=== PATIENT | female | born 1950 | race Two or more races ===

== ENCOUNTER → 2017-11-05 | Outpatient (CLI) | payer BC ==
[~2017-11-05] MED LIST: ACEASPCAF; METO50 PO; NAPR500 PO; OXYACE5T PO
[2017-11-05 16:23] LABS: BASOPHILS ABSOLUTE AUTO 0.03 K/mm3 (0.00-0.23); BASOPHILS PERCENT AUTO 0 % (0-2); EOSINOPHILS ABSOLUTE AUTO 0.05 K/mm3 (0.00-0.68); EOSINOPHILS PERCENT AUTO 0 % (0-6); Hematocrit 34.5 % (33.0-51.0); Hemoglobin 11.3 g/dL (11.5-16.0); IMMATURE GRAN ABSOLUTE AUTO 0.04 K/mm3 (0.00-0.10); IMMATURE GRAN PERCENT AUTO 0 % (0-1); LYMPHOCYTES ABSOLUTE AUTO 1.98 K/mm3 (0.84-5.20); LYMPHOCYTES PERCENT AUTO 15 % (21-46); MONOCYTES ABSOLUTE AUTO 1.52 K/mm3 (0.16-1.47); MONOCYTES PERCENT AUTO 11 % (4-13); Mean Corpuscular HGB 28.5 pg (26.0-34.0); Mean Corpuscular HGB Conc 32.8 g/dL (31.5-36.5); Mean Corpuscular Volume 87 fL (80-100); Mean Platelet Volume 10.7 fL (9.1-12.4); NEUTROPHILS ABSOLUTE AUTO 9.97 K/mm3 (1.96-9.15); NEUTROPHILS PERCENT AUTO 73 % (41-73); Platelet Count 216 K/mm3 (150-400); RDW Coefficient Variation 14.6 % (11.7-14.2); Red Blood Cell Count 3.97 M/mm3 (3.80-5.20); White Blood Cell Count 13.59 K/mm3 (4.00-11.30)
[2017-11-05 16:35] LABS: Albumin, Blood 3.3 g/dL (3.4-5.0); Albumin/Globulin Ratio 0.9 (0.8-1.8); Bilirubin, Total 0.8 mg/dL (0.1-1.0); Bun/Creatinine Ratio 14.1 (12.0-20.0); Calcium, Blood 10.2 mg/dL (8.5-10.1); Creatinine, Blood 1.7 mg/dL (0.40-1.00); Globulin, Blood 3.5 g/dL (2.2-4.0); Potassium, Blood 3.7 mmol/L (3.5-5.5); Total Protein, Blood 6.8 g/dL (6.4-8.2)
== END ==
LOC: LAB EV 16:18 → LAB SHORT 16:18
PROVIDERS: Internal Medicine
DX: R10.9 Unspecified abdominal pain (principal)
CPT/HCPCS: 80053; 82150; 83690; 85025; 87077; 87086; 87186

== ENCOUNTER → 2017-11-06 | Outpatient (CLI) | payer BC ==
[2017-11-06 16:06] LABS: BASOPHILS ABSOLUTE AUTO 0.04 K/mm3 (0.00-0.23); BASOPHILS PERCENT AUTO 0 % (0-2); EOSINOPHILS ABSOLUTE AUTO 0.14 K/mm3 (0.00-0.68); EOSINOPHILS PERCENT AUTO 1 % (0-6); Hematocrit 32.4 % (33.0-51.0); Hemoglobin 10.5 g/dL (11.5-16.0); IMMATURE GRAN ABSOLUTE AUTO 0.04 K/mm3 (0.00-0.10); IMMATURE GRAN PERCENT AUTO 0 % (0-1); LYMPHOCYTES PERCENT AUTO 18 % (21-46); MONOCYTES ABSOLUTE AUTO 1.19 K/mm3 (0.16-1.47); MONOCYTES PERCENT AUTO 12 % (4-13); Mean Corpuscular HGB 28.8 pg (26.0-34.0); Mean Corpuscular HGB Conc 32.4 g/dL (31.5-36.5); Mean Corpuscular Volume 89 fL (80-100); Mean Platelet Volume 10.6 fL (9.1-12.4); NEUTROPHILS ABSOLUTE AUTO 6.58 K/mm3 (1.96-9.15); NEUTROPHILS PERCENT AUTO 67 % (41-73); Platelet Count 227 K/mm3 (150-400); RDW Coefficient Variation 14.6 % (11.7-14.2); RDW Standard Deviation 47.3 fL (35.1-46.3); Red Blood Cell Count 3.65 M/mm3 (3.80-5.20); White Blood Cell Count 9.79 K/mm3 (4.00-11.30)
[2017-11-06 16:15] LABS: Albumin, Blood 2.9 g/dL (3.4-5.0); Albumin/Globulin Ratio 0.7 (0.8-1.8); Bilirubin, Total 0.5 mg/dL (0.1-1.0); Bun/Creatinine Ratio 16.4 (12.0-20.0); Calcium, Blood 10.3 mg/dL (8.5-10.1); Creatinine, Blood 1.16 mg/dL (0.40-1.00); Potassium, Blood 3.8 mmol/L (3.5-5.5); Total Protein, Blood 6.9 g/dL (6.4-8.2)
== END ==
LOC: LAB SHORT 16:01 → LAB EV 16:01
PROVIDERS: Physician Assistant Surgical
DX: N10 Acute pyelonephritis (principal)
CPT/HCPCS: 80053; 85025

== ENCOUNTER → 2017-11-07 | Outpatient (CLI) | payer BC ==
[2017-11-07 14:52] LABS: BASOPHILS ABSOLUTE AUTO 0.06 K/mm3 (0.00-0.23); BASOPHILS PERCENT AUTO 1 % (0-2); EOSINOPHILS ABSOLUTE AUTO 0.16 K/mm3 (0.00-0.68); EOSINOPHILS PERCENT AUTO 3 % (0-6); Hemoglobin 9.8 g/dL (11.5-16.0); IMMATURE GRAN ABSOLUTE AUTO 0.01 K/mm3 (0.00-0.10); IMMATURE GRAN PERCENT AUTO 0 % (0-1); LYMPHOCYTES ABSOLUTE AUTO 1.85 K/mm3 (0.84-5.20); LYMPHOCYTES PERCENT AUTO 32 % (21-46); MONOCYTES ABSOLUTE AUTO 0.59 K/mm3 (0.16-1.47); MONOCYTES PERCENT AUTO 10 % (4-13); Mean Corpuscular HGB 28.9 pg (26.0-34.0); Mean Corpuscular HGB Conc 32.7 g/dL (31.5-36.5); Mean Corpuscular Volume 89 fL (80-100); Mean Platelet Volume 9.9 fL (9.1-12.4); NEUTROPHILS ABSOLUTE AUTO 3.07 K/mm3 (1.96-9.15); NEUTROPHILS PERCENT AUTO 54 % (41-73); Platelet Count 211 K/mm3 (150-400); RDW Coefficient Variation 14.6 % (11.7-14.2); RDW Standard Deviation 46.6 fL (35.1-46.3); Red Blood Cell Count 3.39 M/mm3 (3.80-5.20); White Blood Cell Count 5.74 K/mm3 (4.00-11.30)
[2017-11-07 15:05] LABS: Albumin, Blood 2.8 g/dL (3.4-5.0); Albumin/Globulin Ratio 0.7 (0.8-1.8); Bilirubin, Total 0.3 mg/dL (0.1-1.0); Bun/Creatinine Ratio 12.2 (12.0-20.0); Calcium, Blood 10.2 mg/dL (8.5-10.1); Creatinine, Blood 1.15 mg/dL (0.40-1.00); Globulin, Blood 3.8 g/dL (2.2-4.0); Potassium, Blood 3.6 mmol/L (3.5-5.5); Total Protein, Blood 6.6 g/dL (6.4-8.2)
== END ==
LOC: LAB EV 14:48 → LAB SHORT 14:48
PROVIDERS: Physician Assistant Surgical
DX: R10.9 Unspecified abdominal pain (principal)
CPT/HCPCS: 80053; 85025

== ENCOUNTER → 2018-02-04 | Outpatient (CLI) | payer BC ==
[~2018-02-04] MED LIST changes: +Advil200 M1 PO; +CHOL10002 PO; +CYAN500 PO; +Invanz1 GM IV; +Super Calcium600 MG PO; +TRAM50 PO
== END ==
LOC: LAB SHORT 14:11 → LAB 14:11
DX: R30.0 Dysuria (principal); M54.9 Dorsalgia, unspecified
CPT/HCPCS: 87077; 87086; 87186

== ENCOUNTER 2018-05-22 12:00 | Day surgery (SDC) | payer OTHER | END 2018-05-22 23:59 | disposition home or self-care (01) | LOC: ATC 12:00 | DX: N39.0 Urinary tract infection, site not specified (principal) | CPT/HCPCS: 96365; J1335 ==

== ENCOUNTER → 2018-07-15 | Outpatient (CLI) | payer OTHER ==
[2018-07-15 10:45] LABS: Creatinine Urine 38.8 mg/dL (27.00-270.00); Protein, Urine Quantitative 31.6 mg/dL (0.0-11.9); Uric Acid, Urine 16.8 mg/dL (7.5-49.5)
[2018-07-15 10:59] LABS: Calcium, Urine 9.9 mg/dL (2.0-17.5); Calcium, Urine Calculation 277.2 mg/24hrs (42.0-353.0); Phosphorus, Urine 30.5 mg/dL (20.0-60.0)
== END | disposition home or self-care (01) ==
LOC: LAB 09:10 → LAB SHORT 09:10 → LAB FUT 07-13 16:10
PROVIDERS: Internal Medicine Nephrology
DX: N18.2 Chronic kidney disease, stage 2 (mild) (principal); D63.1 Anemia in chronic kidney disease; N25.81 Secondary hyperparathyroidism of renal origin; E55.9 Vitamin D deficiency, unspecified; E78.00 Pure hypercholesterolemia, unspecified; D51.8 Other vitamin B12 deficiency anemias; D52.8 Other folate deficiency anemias; D50.9 Iron deficiency anemia, unspecified; R76.9 Abnormal immunological finding in serum, unspecified; R94.5 Abnormal results of liver function studies; R94.6 Abnormal results of thyroid function studies
CPT/HCPCS: 81050; 82043; 82131; 82340; 82507; 82570; 84105; 84133; 84156; 84300; 84560

== ENCOUNTER 2018-07-21 11:07 | Emergency (ER) | payer OTHER ==
[~2018-07-21] VITALS: Ht 170.2 cm; Wt 82.5 kg
[2018-07-21 12:03] LABS: BASOPHILS ABSOLUTE AUTO 0.06 K/mm3 (0.00-0.23); BASOPHILS PERCENT AUTO 1 % (0-2); EOSINOPHILS ABSOLUTE AUTO 0.12 K/mm3 (0.00-0.68); EOSINOPHILS PERCENT AUTO 2 % (0-6); Hemoglobin 11.2 g/dL (11.5-16.0); IMMATURE GRAN ABSOLUTE AUTO 0.01 K/mm3 (0.00-0.10); IMMATURE GRAN PERCENT AUTO 0 % (0-1); LYMPHOCYTES ABSOLUTE AUTO 2.55 K/mm3 (0.84-5.20); LYMPHOCYTES PERCENT AUTO 39 % (21-46); MONOCYTES ABSOLUTE AUTO 0.49 K/mm3 (0.16-1.47); MONOCYTES PERCENT AUTO 7 % (4-13); Mean Corpuscular HGB 27.5 pg (26.0-34.0); Mean Corpuscular HGB Conc 31.1 g/dL (31.5-36.5); Mean Corpuscular Volume 88 fL (80-100); Mean Platelet Volume 10.6 fL (9.1-12.4); NEUTROPHILS ABSOLUTE AUTO 3.35 K/mm3 (1.96-9.15); NEUTROPHILS PERCENT AUTO 51 % (41-73); Platelet Count 270 K/mm3 (150-400); RDW Coefficient Variation 13.9 % (11.7-14.2); RDW Standard Deviation 44.4 fL (35.1-46.3); Red Blood Cell Count 4.08 M/mm3 (3.80-5.20); White Blood Cell Count 6.58 K/mm3 (4.00-11.30)
[2018-07-21 12:24] LABS: Alanine Aminotransfer (ALT/SGP 44 U/L (12-78); Albumin, Blood 3.5 g/dL (3.4-5.0); Albumin/Globulin Ratio 0.9 (0.8-1.8); Alk Phos 82 U/L (50-136); Anion Gap 6 mmol/L (6-16); Aspartate Aminotrans (AST/SGOT 21 U/L (12-37); Bilirubin, Total 0.6 mg/dL (0.1-1.0); Blood Urea Nitrogen 18 mg/dL (8-24); Bun/Creatinine Ratio 23.1 (12.0-20.0); CO2, Blood 28 mmol/L (21-32); Chloride, Blood 106 mmol/L (98-108); Creatinine, Blood 0.78 mg/dL (0.40-1.00); Globulin, Blood 4.1 g/dL (2.2-4.0); Glomerular Filtration Rate >60 (60-); Glucose, Blood 131 mg/dL (70-99); Potassium, Blood 3.6 mmol/L (3.5-5.5); Sodium, Blood 140 mmol/L (136-145); Total Protein, Blood 7.6 g/dL (6.4-8.2); Troponin I <0.015 ng/mL (0.000-0.040)
== END 2018-07-21 13:50 | disposition home or self-care (01) ==
LOC: ER 11:07
PROVIDERS: Emergency Medicine
DX: M54.9 Dorsalgia, unspecified (principal); M79.601 Pain in right arm; M79.602 Pain in left arm; Z79.899 Other long term (current) drug therapy
CPT/HCPCS: 36415; 80053; 84484; 85025; 93005; 93010; 99283-25

== ENCOUNTER → 2020-05-07 | Outpatient (CLI) | payer OTHER ==
[2020-05-07 14:42] LABS: Creatinine Urine 38.8 mg/dL (27.00-270.00); Protein, Urine Quantitative 6.8 mg/dL (0.0-11.9)
[2020-05-07 14:45] LABS: Microalbumin, Urine Quant. 7.41 mg/L (0.000-20.000)
== END | disposition home or self-care (01) ==
LOC: LAB 13:10 → LAB SHORT 13:10
PROVIDERS: Internal Medicine Nephrology
DX: N18.2 Chronic kidney disease, stage 2 (mild) (principal); D63.1 Anemia in chronic kidney disease; N25.81 Secondary hyperparathyroidism of renal origin; E55.9 Vitamin D deficiency, unspecified; E78.00 Pure hypercholesterolemia, unspecified; R80.9 Proteinuria, unspecified; R76.9 Abnormal immunological finding in serum, unspecified; R94.5 Abnormal results of liver function studies
CPT/HCPCS: 81050; 82043; 82570; 84156

== ENCOUNTER → 2020-11-25 | Outpatient (CLI) | payer OTHER | END | disposition home or self-care (01) | LOC: PLD 17:38 → LAB SHORT 17:38 | DX: N39.0 Urinary tract infection, site not specified (principal) | CPT/HCPCS: 87077; 87086; 87186 ==

== ENCOUNTER 2021-08-18 19:15 | Emergency (ER) | payer OTHER ==
[~2021-08-18] VITALS: Ht 167.6 cm; Wt 90.7 kg
== END 2021-08-18 23:45 | disposition home or self-care (01) ==
LOC: ER 19:15
DX: S16.1XXA Strain of muscle, fascia and tendon at neck level, initial encounter (principal); S29.012A Strain of muscle and tendon of back wall of thorax, initial encounter; I10 Essential (primary) hypertension; M19.90 Unspecified osteoarthritis, unspecified site; V49.40XA Driver injured in collision with unspecified motor vehicles in traffic accident, initial encounter
CPT/HCPCS: 36415; 70450; 71046; 93005; 93010; 99285-25; A9270

== ENCOUNTER → 2023-01-04 | Outpatient (CLI) | payer OTHER ==
[2023-01-04 18:27] LABS: Creatinine Urine 30.5 mg/dL (27.00-270.00); Microalbumin, Urine Quant. 6.03 mg/L (0.000-20.000)
== END ==
LOC: LAB 12:00 → LAB SHORT 12:00 → LAB FUT 12-31 10:05
PROVIDERS: Internal Medicine Nephrology
DX: N18.30 Chronic kidney disease, stage 3 unspecified (principal); D63.1 Anemia in chronic kidney disease; R76.9 Abnormal immunological finding in serum, unspecified; R94.6 Abnormal results of thyroid function studies
CPT/HCPCS: 81050; 82043; 82570; 84156

== ENCOUNTER → 2023-02-05 | Outpatient (CLI) | payer OTHER ==
[2023-02-05 19:15] LABS: Microalbumin, Urine Quant. 5.28 mg/L (0.000-20.000)
== END ==
LOC: LAB SHORT 16:25 → LAB 16:25
PROVIDERS: Internal Medicine Nephrology
DX: N18.2 Chronic kidney disease, stage 2 (mild) (principal); N25.81 Secondary hyperparathyroidism of renal origin; E55.9 Vitamin D deficiency, unspecified; E78.00 Pure hypercholesterolemia, unspecified; R76.9 Abnormal immunological finding in serum, unspecified; R94.5 Abnormal results of liver function studies; R94.6 Abnormal results of thyroid function studies; D51.8 Other vitamin B12 deficiency anemias; D63.1 Anemia in chronic kidney disease
CPT/HCPCS: 81050; 82043; 82570; 84156

== ENCOUNTER 2025-06-07 17:54 | Inpatient (IN) | payer OTHER ==
[~2025-06-07] VITALS: Ht 170.2 cm; Wt 89.4 kg
[~2025-06-07 17:54] MED LIST changes: -AMOCLA875 PO; -CINA30 PO; -DOCUZEN 8.6-501 EACH PO; -LOSA25 PO; -METO25ER PO; -MIRALAX17 GM PO; -Oxybutynin Chlo10 MG PO; -PREG100 PO; -SERT100 PO; -XARELTO20 MG PO
[2025-06-07] MEDS ORDERED: NS 1,000 ML IV SCH (18:30)
[2025-06-07] MEDS ORDERED: Ketorolac Tromethamine 15mg Vial IV ONE (18:35)
[2025-06-07 18:42] LABS: BASOPHILS ABSOLUTE AUTO 0.04 K/mm3 (0.00-0.23); BASOPHILS PERCENT AUTO 0 % (0-2); EOSINOPHILS ABSOLUTE AUTO 0.06 K/mm3 (0.00-0.68); EOSINOPHILS PERCENT AUTO 1 % (0-6); Hematocrit 34.9 % (33.0-51.0); Hemoglobin 11.1 g/dL (11.5-16.0); IMMATURE GRAN ABSOLUTE AUTO 0.03 K/mm3 (0.00-0.10); IMMATURE GRAN PERCENT AUTO 0 % (0-1); LYMPHOCYTES ABSOLUTE AUTO 2.74 K/mm3 (0.84-5.20); LYMPHOCYTES PERCENT AUTO 25 % (21-46); MONOCYTES ABSOLUTE AUTO 0.91 K/mm3 (0.16-1.47); MONOCYTES PERCENT AUTO 8 % (4-13); Mean Corpuscular HGB Conc 31.8 g/dL (31.5-36.5); Mean Corpuscular Volume 85 fL (80-100); NEUTROPHILS ABSOLUTE AUTO 7.07 K/mm3 (1.96-9.15); NEUTROPHILS PERCENT AUTO 65 % (41-73); NRBC ABSOLUTE 0.00 K/mm3 (0.00-0.02); NRBC Auto 0.0 /100 WBC (0.0-0.2); Platelet Count 192 K/mm3 (150-400); RDW Coefficient Variation 17.1 % (11.7-14.2); RDW Standard Deviation 53.1 fL (35.1-46.3)
[2025-06-07 19:06] LABS: Source, Urine Straight Cath
[2025-06-07 19:24] LABS: Bilirubin, Urine Neg (Neg); Color, Urine Yellow (P-Yellow); Glucose Qualitative, Urine Neg (Neg); Ketones, Urine Neg (Neg); Leukocyte Esterase, Urine 3+ (Neg); Protein, Urine 2+ (Neg); Specific Gravity, Urine 1.015 (1.003-1.022); Urobilinogen, Urine NORM (Normal)
[2025-06-07 19:31] LABS: Alanine Aminotransfer (ALT/SGP 18.0 U/L (12-78); Albumin, Blood 3.2 g/dL (3.4-5.0); Albumin/Globulin Ratio 1.2 (0.8-1.8); Anion Gap 8.0 mmol/L (3-11); Aspartate Aminotrans (AST/SGOT 16.0 U/L (12-37); Bilirubin, Total 0.9 mg/dL (0.1-1.0); Blood Urea Nitrogen 20.0 mg/dL (8-24); CO2, Blood 24.0 mmol/L (21-32); Calcium, Blood 10.1 mg/dL (8.5-10.1); Chloride, Blood 112.0 mmol/L (98-108); Creatinine, Blood 0.73 mg/dL (0.40-1.00); Globulin, Blood 2.6 g/dL (2.2-4.0); Glucose, Blood 134.0 mg/dL (70-99); Potassium, Blood 3.7 mmol/L (3.5-5.5); Sodium, Blood 140.0 mmol/L (136-145); Total Protein, Blood 5.8 g/dL (6.4-8.2)
[2025-06-07 19:43] LABS: White Blood Cells, Urine TNTC /hpf (0-5)
[2025-06-07] MEDS ORDERED: LevoFLOXacin 750 MG/D5W 150ML 150 ML IV ONE (19:55)
[2025-06-07] MEDS ORDERED: CINA30 PO (22:17)
[2025-06-07] MEDS ORDERED: Oxybutynin Chlo10 MG PO ×2 (22:18)
[2025-06-07] MEDS ORDERED: METO25ER PO (22:19)
[2025-06-07] MEDS ORDERED: Ondansetron HCl 2 MG / ML 2ML Vial ONE (22:27)
[2025-06-07] MEDS ORDERED: FentaNYL Citrate 50 MCG/ML 2 ML Injection IV ONE ×2 (22:35→22:40)
[2025-06-07] MEDS ORDERED: Ondansetron HCl 2 MG / ML 2ML Vial IV ONE (22:35)
[2025-06-07] MEDS ORDERED: FentaNYL Citrate 50 MCG/ML 2 ML Injection IV PRN ×3 (23:00→23:40)
[2025-06-07] MEDS ORDERED: Ondansetron HCl 2 MG / ML 2ML Vial IV PRN ×2 (23:00→23:35)
[2025-06-07] MEDS ORDERED: FLU VACC TS2025(65UP)/MF59C/PF 45 MCG/0.5 ML SYRINGE IM SCH (23:00)
[2025-06-07] MEDS ORDERED: NS 1,000 ML IV ONE (23:00)
[2025-06-07] MEDS ORDERED: FentaNYL Citrate 50 MCG/ML 2 ML Injection ONE (23:15)
[2025-06-07] MEDS ORDERED: HYDROmorphone HCl/Pf 1MG SYR IV PRN ×2 (23:35→23:40)
[2025-06-07] MEDS ORDERED: Albuterol 2.5 MG/3 ML VIAL INH PRN (23:40)
[2025-06-08] VITALS (15 sets, daily range): BP systolic 103–147; BP diastolic 48–70
[2025-06-08] MEDS ORDERED: NS 1,000 ML IV ONE (01:35)
--- NOTE | 2025-06-08 01:58 | NUR ---
ADMIT NOTE ADMITTED THIS SHIFT FROM OR. HANDOFF RECEIVED FROM DETECTIVE AUTOMOBILE SECTION SUNNI AT BEDSIDE. PT ORIENTED TO UNIT. TELEMETRY: AFLUTTER @ 60'S BPM, PER CREDIT PRODUCT ANALYST. PERSONAL BELONGINGS WITH PT. PT'S NIECE AT BEDSIDE. CALL BUTTON WITHIN REACH OF THE PT. BED ALARM ACTIVE. IV FLUID AND ANTIB RX INFUSING ORDERED. CALLED HOSPITALIST FOR DIET ORDER, ADVANCE DIET TOLERATED UNLESS UROLOGY CONSULT NOTES OTHERWISE.
--- NOTE | 2025-06-08 03:50 | NUR ---
SHIFT SUMMARY ADMITTED THIS SHIFT FOR OBSTRUCTIVE UROPATHY. FULL CODE. LEFT-SIDE URETERAL STENT PLACED IN OR. DR. MONTERO IS UROLOGY CONSULT. DURAN PLACED IN OR. TELEMETRY: AFLUTTER @ 58 BPM. (BRADYCARDIA NOTED @ ADMIT). RECENT RIGHT HIP FRACTURE AND REPAIR. SHE HAS A HX OF GLF'S. FAMILY CARES FOR HER SINCE THOSE SURGERIES (X2 ON RIGHT HIP). SHE SPENDS HALF OF THE YEAR WITH FAMILY IN [place], AND THE OTHER HALF OF THE YEAR HERE WITH FAMILY. SHE SPEAKS SOME KINYARWANDA, BUT HER MAIN LANGUAGE IS FAROESE. SHE USES A FWW @ HOME. IV FLUID INFUSING ORDERED. IV ANTIB RX ARE SCHEDULED SHE HAS A UTI. ON RA, A&O X4. HX: KIDNEY STONES, AFIB, XARELTO
[2025-06-08 05:47] LABS: BASOPHILS ABSOLUTE AUTO 0.05 K/mm3 (0.00-0.23); BASOPHILS PERCENT AUTO 0 % (0-2); EOSINOPHILS ABSOLUTE AUTO 0.01 K/mm3 (0.00-0.68); EOSINOPHILS PERCENT AUTO 0 % (0-6); Hematocrit 35.2 % (33.0-51.0); Hemoglobin 11.6 g/dL (11.5-16.0); IMMATURE GRAN ABSOLUTE AUTO 0.10 K/mm3 (0.00-0.10); IMMATURE GRAN PERCENT AUTO 1 % (0-1); LYMPHOCYTES ABSOLUTE AUTO 1.67 K/mm3 (0.84-5.20); LYMPHOCYTES PERCENT AUTO 12 % (21-46); MONOCYTES ABSOLUTE AUTO 0.61 K/mm3 (0.16-1.47); MONOCYTES PERCENT AUTO 4 % (4-13); Mean Corpuscular HGB Conc 33.0 g/dL (31.5-36.5); Mean Corpuscular Volume 83 fL (80-100); NEUTROPHILS ABSOLUTE AUTO 11.40 K/mm3 (1.96-9.15); NEUTROPHILS PERCENT AUTO 82 % (41-73); NRBC ABSOLUTE 0.00 K/mm3 (0.00-0.02); NRBC Auto 0.0 /100 WBC (0.0-0.2); RDW Coefficient Variation 16.9 % (11.7-14.2); RDW Standard Deviation 51.5 fL (35.1-46.3)
[2025-06-08 05:50] LABS: Alanine Aminotransfer (ALT/SGP 18.0 U/L (12-78); Albumin, Blood 3.0 g/dL (3.4-5.0); Albumin/Globulin Ratio 1.0 (0.8-1.8); Anion Gap 6.0 mmol/L (3-11); Aspartate Aminotrans (AST/SGOT 12.0 U/L (12-37); Bilirubin, Total 0.9 mg/dL (0.1-1.0); Blood Urea Nitrogen 18.0 mg/dL (8-24); CO2, Blood 25.0 mmol/L (21-32); Calcium, Blood 9.9 mg/dL (8.5-10.1); Chloride, Blood 112.0 mmol/L (98-108); Creatinine, Blood 0.85 mg/dL (0.40-1.00); Globulin, Blood 3.0 g/dL (2.2-4.0); Glucose, Blood 175.0 mg/dL (70-99); Potassium, Blood 4.2 mmol/L (3.5-5.5); Sodium, Blood 139.0 mmol/L (136-145); Total Protein, Blood 6.0 g/dL (6.4-8.2)
--- NOTE | 2025-06-08 08:05 | NUR ---
DR. WINSTON DUBON- SURGEON ROUNDING. STONE WAS TOO BIG TO REMOVE, STENT PLACED SUCCESSFULLY. PT WILL HAVE OUT PATIENT STONE REMOVAL AFTER DISCHARGE. OK TO REMOVE DURAN TODAY AND RETURN TO REGULAR DIET TOLERATED. PTS MAIN HCP WITH DECIDED WHEN DISCHARGE WILL HAPPEN.
[2025-06-08] MEDS ORDERED: Metoclopramide HCl 5MG / ML 2ML Vial IV ONE (15:10)
--- NOTE | 2025-06-08 15:26 | NUR ---
CALLED DR. JUÁREZ AND SPOKE WITH HIM ABOUT PT STILL FEELING NAUSEATED DESPITE ZOFRAN BEING GIVEN. OBTAINED ORDER FOR 1 TIME DOSE OF 5MG REGLAN. NOTIFIED PRIMARY RN UPON RETURN FROM BREAK OF NEW ORDER DUE TO MED NOT BEING AVAILABLE YET.
[2025-06-08] MEDS ORDERED: PREG100 PO (16:13)
[2025-06-08] MEDS ORDERED: LOSA25 PO (16:13)
[2025-06-08] MEDS ORDERED: SERT100 PO (16:13)
[2025-06-08] MEDS ORDERED: XARELTO20 MG PO (16:13)
[2025-06-08] MEDS ORDERED: NS 250 ML IV PRN (17:00)
--- NOTE | 2025-06-08 19:42 | NUR ---
SHIFT SUMMARY- MEDS [facility] JUNIOR ALMANZA- RECENT R HIP FX DURAN FOR URINATION A/OX4 WAITING ON CX RESULTS BEFORE DISCHARGE
[2025-06-09 00:15] VITALS: BP 137/77
[2025-06-09 04:09] VITALS: BP 133/68
--- NOTE | 2025-06-09 04:53 | NUR ---
SHIFT SUMMARY A&OX4. ABLE TO MAKE NEEDS KNOWN. HAS DURAN PRESENT PER HER REQUEST SO SHE COULD REST THROUGH THE NIGHT DUE TO URGENCY. DURAN PATENT AND DRAINING ERVIN COLORED URINE. SHE DID HAVE AN EPISODE OF LEAKAGE FROM DURAN. THIS WAS FOUND TO BE DUE TO PT POSITIONING. PT REPOSITIONED AND TRANSFERRED FROM CHAIR TO BED AND LEAKING STOPPED. PT TOLERATED WELL WITH MINIMAL PAIN. PT HAS NOT REPORTED SIGNIFICANT PAIN. SHE WAS ABLE TO EAT A SMALL AMOUNT OF OATMEAL AND A FEW CRACKERS AND TOLERATED THIS WELL W/O N/V. SHE WAS ABLE TO REST MOST OF THE NIGHT IN HER BED. SHE IS CURRENTLY SLEEPING IN HER BED AT LOWEST POSITION WITH CALL LIGHT WITHIN REACH WITH HER DAUGHTER AT BEDSIDE.
[2025-06-09 04:59] LABS: BASOPHILS ABSOLUTE AUTO 0.05 K/mm3 (0.00-0.23); BASOPHILS PERCENT AUTO 0 % (0-2); EOSINOPHILS ABSOLUTE AUTO 0.10 K/mm3 (0.00-0.68); EOSINOPHILS PERCENT AUTO 1 % (0-6); Hematocrit 36.2 % (33.0-51.0); Hemoglobin 11.7 g/dL (11.5-16.0); IMMATURE GRAN ABSOLUTE AUTO 0.04 K/mm3 (0.00-0.10); IMMATURE GRAN PERCENT AUTO 0 % (0-1); LYMPHOCYTES ABSOLUTE AUTO 3.68 K/mm3 (0.84-5.20); LYMPHOCYTES PERCENT AUTO 29 % (21-46); MONOCYTES ABSOLUTE AUTO 1.02 K/mm3 (0.16-1.47); MONOCYTES PERCENT AUTO 8 % (4-13); Mean Corpuscular HGB Conc 32.3 g/dL (31.5-36.5); Mean Corpuscular Volume 85 fL (80-100); NEUTROPHILS ABSOLUTE AUTO 7.93 K/mm3 (1.96-9.15); NEUTROPHILS PERCENT AUTO 62 % (41-73); NRBC ABSOLUTE 0.00 K/mm3 (0.00-0.02); NRBC Auto 0.0 /100 WBC (0.0-0.2); Platelet Count 185 K/mm3 (150-400); RDW Coefficient Variation 17.2 % (11.7-14.2); RDW Standard Deviation 53.4 fL (35.1-46.3)
[2025-06-09 06:39] LABS: Anion Gap 6.0 mmol/L (3-11); Blood Urea Nitrogen 17.0 mg/dL (8-24); CO2, Blood 26.0 mmol/L (21-32); Calcium, Blood 9.8 mg/dL (8.5-10.1); Chloride, Blood 112.0 mmol/L (98-108); Creatinine, Blood 0.81 mg/dL (0.40-1.00); Glucose, Blood 146.0 mg/dL (70-99); Potassium, Blood 3.8 mmol/L (3.5-5.5); Sodium, Blood 140.0 mmol/L (136-145)
[2025-06-09 07:57] VITALS: BP 149/58
[2025-06-09] MEDS ORDERED: Polyethylene Glycol 3350 17 gm PO SCH (09:00)
[2025-06-09 12:05] VITALS: BP 126/78
[2025-06-09 15:34] VITALS: BP 147/69
--- NOTE | 2025-06-09 18:29 | NUR ---
NOTE PT ALERT. SITTING UP IN THE RECLINER MOST OF THE DAY. STOMACH NAUSEIOUS. ZOFRAN GIVEN. DRINKING SMALL AMOUNTS, EATING SMALL AMOUNTS. NO EMESIS. SMALL BM. BOWLE CARE GIVEN TODAY. VSS. TELEMETRY ATRIAL FLUTTER WITH CONTROLLED VENTRICULAR RATE. FAMILY AT BEDSIDE. DURAN PATENT. PT HAS DENIED PAIN CONTROL. OFFERED MEDCIATIONS, ICE PACK AND KPAD. CHAIR LOCKED. PT WEARING HER SLIPPERS. CALL LIGHT WITH IN REACH.
[2025-06-09 19:23] VITALS: BP 126/67
[2025-06-10] VITALS (7 sets, daily range): BP systolic 115–156; BP diastolic 57–77
[2025-06-10 05:36] LABS: BASOPHILS ABSOLUTE AUTO 0.05 K/mm3 (0.00-0.23); BASOPHILS PERCENT AUTO 1 % (0-2); EOSINOPHILS ABSOLUTE AUTO 0.30 K/mm3 (0.00-0.68); EOSINOPHILS PERCENT AUTO 4 % (0-6); Hematocrit 36.5 % (33.0-51.0); Hemoglobin 11.7 g/dL (11.5-16.0); IMMATURE GRAN ABSOLUTE AUTO 0.01 K/mm3 (0.00-0.10); IMMATURE GRAN PERCENT AUTO 0 % (0-1); LYMPHOCYTES ABSOLUTE AUTO 2.74 K/mm3 (0.84-5.20); LYMPHOCYTES PERCENT AUTO 39 % (21-46); MONOCYTES ABSOLUTE AUTO 0.75 K/mm3 (0.16-1.47); MONOCYTES PERCENT AUTO 11 % (4-13); Mean Corpuscular HGB Conc 32.1 g/dL (31.5-36.5); Mean Corpuscular Volume 86 fL (80-100); NEUTROPHILS ABSOLUTE AUTO 3.24 K/mm3 (1.96-9.15); NEUTROPHILS PERCENT AUTO 46 % (41-73); NRBC ABSOLUTE 0.00 K/mm3 (0.00-0.02); NRBC Auto 0.0 /100 WBC (0.0-0.2); Platelet Count 207 K/mm3 (150-400); RDW Coefficient Variation 17.3 % (11.7-14.2); RDW Standard Deviation 54.4 fL (35.1-46.3)
--- NOTE | 2025-06-10 06:13 | NUR ---
SHIFT SUMMARY A&OX4. ABLE TO MAKE ALL NEEDS KNOWN. FAMILY WAS HERE WITH HER UNTIL LATE EVENING. SHE DENIES PAIN AT REST. PAIN APPEARS TO INCREASE WITH AMBULATION BUT PT DECLINES PAIN MEDS. PT STATES PAIN RESOLVES ONCE SHE IS SITTING. EDUCATED ON IMPORTANCE OF MOVING AND MOBILITY WITH RECOVERY FROM HIP SURGERY. ALSO EDUCATED ON IMPORTANCE OF TAKING DEEP BREATHS THROUGHOUT THE DAY AND PT DEMONSTRATED DEEP BREATHING EXERCISE. DURAN CATHETER REMAINS PATENT AND DRAINING TO GRAVITY. PT HAS BEEN ABLE TO REST COMFORTABLY THROUHGOUT THE NIGHT WITH BED IN LOWEST POSITION AND CALL LIGHT WITHIN REACH. PT CURRENTLY SLEEPING.
[2025-06-10 06:21] LABS: Anion Gap 6.0 mmol/L (3-11); Blood Urea Nitrogen 12.0 mg/dL (8-24); CO2, Blood 26.0 mmol/L (21-32); Calcium, Blood 9.9 mg/dL (8.5-10.1); Chloride, Blood 113.0 mmol/L (98-108); Creatinine, Blood 0.85 mg/dL (0.40-1.00); Glucose, Blood 129.0 mg/dL (70-99); Potassium, Blood 4.1 mmol/L (3.5-5.5); Sodium, Blood 141.0 mmol/L (136-145)
[2025-06-10] MEDS ORDERED: Enoxaparin 40 MG/0.4 ML SYR SC SCH (09:00)
[2025-06-11 03:41] VITALS: BP 142/68
[2025-06-11 05:46] LABS: BASOPHILS ABSOLUTE AUTO 0.05 K/mm3 (0.00-0.23); BASOPHILS PERCENT AUTO 1 % (0-2); EOSINOPHILS ABSOLUTE AUTO 0.35 K/mm3 (0.00-0.68); EOSINOPHILS PERCENT AUTO 5 % (0-6); Hematocrit 37.4 % (33.0-51.0); Hemoglobin 12.0 g/dL (11.5-16.0); IMMATURE GRAN ABSOLUTE AUTO 0.01 K/mm3 (0.00-0.10); IMMATURE GRAN PERCENT AUTO 0 % (0-1); LYMPHOCYTES ABSOLUTE AUTO 3.29 K/mm3 (0.84-5.20); LYMPHOCYTES PERCENT AUTO 50 % (21-46); MONOCYTES ABSOLUTE AUTO 0.70 K/mm3 (0.16-1.47); MONOCYTES PERCENT AUTO 11 % (4-13); Mean Corpuscular HGB Conc 32.1 g/dL (31.5-36.5); Mean Corpuscular Volume 86 fL (80-100); NEUTROPHILS ABSOLUTE AUTO 2.24 K/mm3 (1.96-9.15); NEUTROPHILS PERCENT AUTO 34 % (41-73); NRBC ABSOLUTE 0.00 K/mm3 (0.00-0.02); NRBC Auto 0.0 /100 WBC (0.0-0.2); Platelet Count 235 K/mm3 (150-400); RDW Coefficient Variation 17.2 % (11.7-14.2); RDW Standard Deviation 54.1 fL (35.1-46.3)
[2025-06-11 06:04] LABS: Anion Gap 5.0 mmol/L (3-11); Blood Urea Nitrogen 10.0 mg/dL (8-24); CO2, Blood 31.0 mmol/L (21-32); Calcium, Blood 10.1 mg/dL (8.5-10.1); Chloride, Blood 108.0 mmol/L (98-108); Creatinine, Blood 0.8 mg/dL (0.40-1.00); Glucose, Blood 100.0 mg/dL (70-99); Potassium, Blood 4.2 mmol/L (3.5-5.5); Sodium, Blood 140.0 mmol/L (136-145)
--- NOTE | 2025-06-11 06:07 | NUR ---
PT HAS BEEN A&OX4, STANDY ASSIST TO BATHROOM. C/0 PAIN 5/10 IN BLE FROM CHRONIC CONDITION. PAIN MEDICATION GIVEN RX. PT REPORTED SHE ONLY HAD A VERY SMALL HARD BM YESTERDAY AND THAT HER ABDOMEN FEELS FIRM, DISTENDED AND SHE FEELS CONSTIPATED. SHE REQUESTED SOMETHING FURTHER TO HELP HER WITH A BM, POWER PUDDING WAS GIVEN WITHOUT SUCCESS DISCUSSED WITH HOSPITALIST. DULCOLAX SUPPOSITORY GIVEN RX.
[2025-06-11 08:13] VITALS: BP 152/85
[2025-06-11 16:23] VITALS: BP 143/65
[2025-06-11] MEDS ORDERED: Magnesium Hydroxide Conc 10 ML UDC PO PRN (16:35)
--- NOTE | 2025-06-11 18:32 | NUR ---
SHIFT SUMMARY PT IS A/OX4. 1 PERSON ASSIST WITH FWW. NO BM THROUGHOUT THIS SHIFT. BOWEL CARE GIVEN PER MAR. ON TELE RUNNING AFLUTTER IN THE 60'S. PT IS PLEANSANT AND COOPERATIVE WITH CARE AND CALLS APPROPRIATLEY USING THE CALL LIGHT.
[2025-06-11 19:33] VITALS: BP 141/82
[2025-06-11] MEDS ORDERED: Docusate Sodium/Senna 1 Tab PO SCH (21:00)
[2025-06-11 23:59] VITALS: BP 154/82
[2025-06-12 03:07] VITALS: BP 158/76
--- NOTE | 2025-06-12 04:31 | NUR ---
SHIFT SUMMARY CONTINUING MEROPENEM IV FOR E. COLI + ESBL UTI VIA 22 G IV IN LHa. REMAINS IN CONTACT PRECAUTIONS FOR ESBL. S/P L OBSTRUCTING UVJ STONE + HYDRONEPHROSIS WITH CYSTOSCOPY. WAS TOLD IN REPORT L URETERAL STENT WAS UNSUCCESSFUL AND PLAN IS TO HAVE THIS OUTPT WITH UROLOGY. PLEASE CLARIFY. ADDED ON FLEET ENEMA TO BOWEL CARE THIS EVENING WITHOUT BM; ALSO GIVEN 1 PRUNE JUICE + 1 APPLE JUICE + 2 BUTTER STICKS ("BROWN COW" DRINK). A&OX4. INDEPENDENT IN ROOM WITH FWW USE. REMAINS IN AFLUTTER WITH SLOW VENTRICULAR RATE ON TELEMETRY.
[2025-06-12 07:53] VITALS: BP 148/64
[2025-06-12 11:43] VITALS: BP 133/61
[2025-06-12] MEDS ORDERED: DOCUZEN 8.6-501 EACH PO (13:40)
[2025-06-12] MEDS ORDERED: MIRALAX17 GM PO (13:41)
[2025-06-12] MEDS ORDERED: AMOCLA875 PO (13:42)
--- NOTE | 2025-06-12 15:00 | NUR ---
PT DISCHARGED TO HOME. DISCHARGE INSTRUCTIONS PROVIDED AND EDUCATED ON AT TIME OF DISCHARGE. ALL VALUABLES RETURNED AND SENT HOME WITH THE PT. MEDICATIONS FAXED TO [facility].
== END 2025-06-12 15:19 | disposition home or self-care (01) | DRG 660 ==
LOC: ER 17:54 → ERHOLD 17:55 → MEDS 17:55
PROVIDERS: Emergency Medicine; Internal Medicine; Urology; ADMIT Internal Medicine
PROC: 0T778DZ Dilation of Left Ureter with Intraluminal Device, Via Natural or Artificial Opening Endoscopic (ICD-10-PCS; principal; 2025-06-08)
DX: N13.6 Pyonephrosis (principal); I48.92 Unspecified atrial flutter; Z16.12 Extended spectrum beta lactamase (ESBL) resistance; M19.90 Unspecified osteoarthritis, unspecified site; N17.9 Acute kidney failure, unspecified; I12.9 Hypertensive chronic kidney disease with stage 1 through stage 4 chronic kidney disease, or unspecified chronic kidney disease; N18.31 Chronic kidney disease, stage 3a; F41.9 Anxiety disorder, unspecified; K59.00 Constipation, unspecified; Z87.440 Personal history of urinary (tract) infections; Z79.899 Other long term (current) drug therapy; Z79.01 Long term (current) use of anticoagulants
CPT/HCPCS: 36415; 74177; 80048; 80053; 81001; 83605; 83690; 83880; 85025; 87040; 87077; 87086; 87186; 87205; 94760; 96361; 96365-59; 96366; 96367; 96375; 96376; 99285-25; A9270; C1758; C1769; C2617; G0378; J1650; J1885; J1956; J2185; J2405; J2704; J2765; J3010; J7030; J7050; Q9967

== ENCOUNTER → 2025-06-07 | Outpatient (CLI) | payer OTHER ==
[~2025-06-07] MED LIST changes: +AMOCLA875 PO; +CINA30 PO; +DOCUZEN 8.6-501 EACH PO; +LOSA25 PO; +METO25ER PO; +MIRALAX17 GM PO; +Oxybutynin Chlo10 MG PO; +PREG100 PO; +SERT100 PO; +XARELTO20 MG PO
[2025-06-07 11:25] LABS: BASOPHILS ABSOLUTE AUTO 0.04 K/mm3 (0.00-0.23); BASOPHILS PERCENT AUTO 0 % (0-2); EOSINOPHILS ABSOLUTE AUTO 0.06 K/mm3 (0.00-0.68); EOSINOPHILS PERCENT AUTO 1 % (0-6); Hematocrit 38.2 % (33.0-51.0); Hemoglobin 12.5 g/dL (11.5-16.0); IMMATURE GRAN ABSOLUTE AUTO 0.03 K/mm3 (0.00-0.10); IMMATURE GRAN PERCENT AUTO 0 % (0-1); LYMPHOCYTES ABSOLUTE AUTO 3.27 K/mm3 (0.84-5.20); LYMPHOCYTES PERCENT AUTO 33 % (21-46); MONOCYTES ABSOLUTE AUTO 0.68 K/mm3 (0.16-1.47); MONOCYTES PERCENT AUTO 7 % (4-13); Mean Corpuscular HGB Conc 32.7 g/dL (31.5-36.5); Mean Corpuscular Volume 84 fL (80-100); NEUTROPHILS ABSOLUTE AUTO 5.94 K/mm3 (1.96-9.15); NEUTROPHILS PERCENT AUTO 59 % (41-73); NRBC ABSOLUTE 0.00 K/mm3 (0.00-0.02); NRBC Auto 0.0 /100 WBC (0.0-0.2); Platelet Count 236 K/mm3 (150-400); RDW Coefficient Variation 17.1 % (11.7-14.2); RDW Standard Deviation 51.8 fL (35.1-46.3)
[2025-06-07 11:36] LABS: Alanine Aminotransfer (ALT/SGP 22.0 U/L (12-78); Albumin, Blood 3.7 g/dL (3.4-5.0); Albumin/Globulin Ratio 1.1 (0.8-1.8); Anion Gap 9.0 mmol/L (3-11); Aspartate Aminotrans (AST/SGOT 18.0 U/L (12-37); Bilirubin, Total 0.6 mg/dL (0.1-1.0); Blood Urea Nitrogen 23.0 mg/dL (8-24); CO2, Blood 28.0 mmol/L (21-32); Calcium, Blood 10.8 mg/dL (8.5-10.1); Chloride, Blood 108.0 mmol/L (98-108); Creatinine, Blood 1.11 mg/dL (0.40-1.00); Globulin, Blood 3.3 g/dL (2.2-4.0); Glucose, Blood 120.0 mg/dL (70-99); Potassium, Blood 4.0 mmol/L (3.5-5.5); Sodium, Blood 141.0 mmol/L (136-145); Total Protein, Blood 7.0 g/dL (6.4-8.2)
== END ==
LOC: LAB SHORT 11:20 → LAB 11:20
DX: R10.9 Unspecified abdominal pain (principal); N39.0 Urinary tract infection, site not specified; R31.9 Hematuria, unspecified
CPT/HCPCS: 80053; 85025; 87077; 87086; 87186

== ENCOUNTER 2025-06-17 23:21 | Emergency (ER) | payer OTHER ==
[~2025-06-17] VITALS: Ht 172.7 cm; Wt 83.9 kg
[~2025-06-17 23:21] MED LIST changes: +AMOCLA875 PO; +CINA30 PO; +DOCUZEN 8.6-501 EACH PO; +LOSA25 PO; +METO25ER PO; +MIRALAX17 GM PO; +Oxybutynin Chlo10 MG PO; +PREG100 PO; +SERT100 PO; +XARELTO20 MG PO
[2025-06-18 00:14] VITALS: BP 154/88
[2025-06-18 00:39] LABS: BASOPHILS ABSOLUTE AUTO 0.08 K/mm3 (0.00-0.23); BASOPHILS PERCENT AUTO 1 % (0-2); EOSINOPHILS ABSOLUTE AUTO 0.30 K/mm3 (0.00-0.68); EOSINOPHILS PERCENT AUTO 5 % (0-6); Hematocrit 34.1 % (33.0-51.0); Hemoglobin 10.7 g/dL (11.5-16.0); IMMATURE GRAN ABSOLUTE AUTO 0.02 K/mm3 (0.00-0.10); IMMATURE GRAN PERCENT AUTO 0 % (0-1); LYMPHOCYTES ABSOLUTE AUTO 3.64 K/mm3 (0.84-5.20); LYMPHOCYTES PERCENT AUTO 57 % (21-46); MONOCYTES ABSOLUTE AUTO 0.63 K/mm3 (0.16-1.47); MONOCYTES PERCENT AUTO 10 % (4-13); Mean Corpuscular HGB Conc 31.4 g/dL (31.5-36.5); Mean Corpuscular Volume 86 fL (80-100); NEUTROPHILS ABSOLUTE AUTO 1.75 K/mm3 (1.96-9.15); NEUTROPHILS PERCENT AUTO 27 % (41-73); NRBC ABSOLUTE 0.00 K/mm3 (0.00-0.02); NRBC Auto 0.0 /100 WBC (0.0-0.2); Platelet Count 219 K/mm3 (150-400); RDW Coefficient Variation 16.5 % (11.7-14.2); RDW Standard Deviation 52.1 fL (35.1-46.3)
[2025-06-18 00:57] LABS: Alanine Aminotransfer (ALT/SGP 40.0 U/L (12-78); Albumin, Blood 3.0 g/dL (3.4-5.0); Albumin/Globulin Ratio 0.9 (0.8-1.8); Anion Gap 9.0 mmol/L (3-11); Aspartate Aminotrans (AST/SGOT 27.0 U/L (12-37); Bilirubin, Total 0.3 mg/dL (0.1-1.0); Blood Urea Nitrogen 16.0 mg/dL (8-24); CO2, Blood 25.0 mmol/L (21-32); Calcium, Blood 10.0 mg/dL (8.5-10.1); Chloride, Blood 111.0 mmol/L (98-108); Creatinine, Blood 0.81 mg/dL (0.40-1.00); Globulin, Blood 3.2 g/dL (2.2-4.0); Glucose, Blood 110.0 mg/dL (70-99); Potassium, Blood 4.0 mmol/L (3.5-5.5); Sodium, Blood 141.0 mmol/L (136-145); Total Protein, Blood 6.2 g/dL (6.4-8.2)
[2025-06-18 01:35] LABS: Source, Urine Clean Catch
[2025-06-18 01:38] LABS: Bilirubin, Urine Neg (Neg); Glucose Qualitative, Urine Neg (Neg); Ketones, Urine Neg (Neg); Leukocyte Esterase, Urine 3+ (Neg); Protein, Urine 3+ (Neg); Specific Gravity, Urine 1.010 (1.003-1.022); Urobilinogen, Urine NORM (Normal)
[2025-06-18 01:45] LABS: Color, Urine Amber (P-Yellow)
[2025-06-18 01:48] LABS: Red Blood Cells, Urine TNTC /hpf (0-2)
[2025-06-18] MEDS ORDERED: AMOCLA875 PO (02:28)
== END 2025-06-18 02:45 | disposition home or self-care (01) ==
LOC: ER 23:21
PROVIDERS: Emergency Medicine
DX: N39.0 Urinary tract infection, site not specified (principal); R31.9 Hematuria, unspecified; R10.A2 Flank pain, left side; Z96.0 Presence of urogenital implants; Z79.899 Other long term (current) drug therapy
CPT/HCPCS: 74177; 80053; 81001; 83690; 85025; 85730; 99284; A9270; Q9967

== ENCOUNTER → 2025-06-20 | Outpatient (CLI) | payer OTHER | LOC: LAB SHORT 15:28 → LAB 15:28 | DX: N39.0 Urinary tract infection, site not specified (principal) | CPT/HCPCS: 87086 ==